=== PATIENT | male | born 1960 | race Caucasian/White ===

== ENCOUNTER 2019-02-26 03:41 | Emergency (ER) | payer BC ==
[2019-02-26] MEDS ORDERED: Labetalol 100 MG/20 ML MDV IVPUSH ONE ×3 (04:07→05:23)
[2019-02-26] MEDS ORDERED: Labetalol 100 MG/20 ML MDV ONE (04:09)
--- NOTE | 2019-02-26 04:11 | EDM.PDOC ---
ED HPI GENERAL MEDICAL PROBLEM - General Chief Complaint: Cardiovascular Problem Stated Complaint: HIGH BLOOD PRESSURE Time Seen by Provider: 02/26/19 03:54 Source of Information: Reports: Patient History Limitations: Reports: No Limitations - History of Present Illness INITIAL COMMENTS - FREE TEXT/NARRATIVE: This is a 58-year-old male. He comes to the ER this morning because of elevated blood pressure. 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 Tonight he went to [employer] had a steak and margaritas and he felt kind of bloated and he couldn' t burp so he says he decided to take his blood pressure because he was currently concerned this been high all week. When I asked him what his blood pressure was this week other than the DOT exam. Indicates he doesn't know as he hasn't been taking it just is been high. Tonight when he took his blood pressure home apparently was higher though he can't tell me what it was. He denies any chest pain, no headache, no shortness of breath. He does have a history of cardiac stents. He takes lisinopril 20 mg a day. He denies any recent illnesses. - Related Data Allergies Allergy/AdvReac Type Severity Reaction Status Date / Time No Known Allergies Allergy Verified 02/26/19 03:54 Home Meds: Home Meds Labetalol [Normodyne] 100 mg PO BID #14 tab 02/26/19 [Rx] Lisinopril 1 tab PO DAILY 02/26/19 [History] Past Medical History Cardiovascular History: Reports: Hypertension, Stents Musculoskeletal History: Reports: Fracture - Past Surgical History Musculoskeletal Surgical History: Reports: Other (See Below) Other Musculoskeletal Surgeries/Procedures:: knee surgery, arm surgery Social & Family History - Family History Family Medical History: Noncontributory - Tobacco Use Smoking Status *Q: Current Every Day Smoker Years of Tobacco use: 40 Packs/Tins Daily: 0.5 - Caffeine Use Caffeine Use: Reports: Coffee, Energy Drinks, Soda - Recreational Drug Use Recreational Drug Use: No ED ROS GENERAL - Review of Systems Review Of Systems: See Below Constitutional: Denies: Fever, Chills HEENT: Reports: No Symptoms Respiratory: Denies: Shortness of Breath, Cough Cardiovascular: Denies: Chest Pain Endocrine: Reports: No Symptoms GI/Abdominal: Denies: Abdominal Pain, Nausea, Vomiting : Reports: No Symptoms Musculoskeletal: Reports: No Symptoms Skin: Reports: No Symptoms Neurological: Denies: Headache Psychiatric: Reports: No Symptoms Hematologic/Lymphatic: Reports: No Symptoms ED EXAM, GENERAL - Physical Exam Exam: See Below Exam Limited By: No Limitations General Appearance: Alert, WD/WN, No Apparent Distress Eye Exam: Bilateral Eye: Normal Inspection Ears: Normal External Exam Nose: Normal Inspection Throat/Mouth: Normal Lips, Normal Voice, No Airway Compromise Head: Normocephalic Neck: Supple Respiratory/Chest: No Respiratory Distress, Lungs Clear, Normal Breath Sounds Cardiovascular: Regular Rate, Rhythm, No Murmur GI/Abdominal: Soft, Non-Tender Back Exam: Full Range of Motion Extremities: Normal Inspection, Normal Range of Motion Neurological: Alert, Oriented Psychiatric: Normal Affect, Normal Mood Skin Exam: Warm, Dry Course - Vital Signs Last Recorded V/S: Last Vital Signs Temp 97.8 F 02/26/19 03:50 Pulse 69 02/26/19 06:00 Resp 22 H 02/26/19 03:50 BP 189/99 H 02/26/19 06:00 Pulse Ox 97 02/26/19 03:50 - Orders/Labs/Meds Meds: Medications Discontinued Medications Generic Name Dose Route Start Last Admin Trade Name Magdaleno PRN Reason Stop Dose Admin Labetalol HCl 20 mg 02/26/19 04:07 02/26/19 04:13 Normodyne IVPUSH 02/26/19 04:08 20 mg ONETIME ONE Administration Protocol Labetalol HCl Confirm 02/26/19 04:09 02/26/19 04:14 Normodyne Administered 02/26/19 04:10 Not Given Dose 100 mg .ROUTE .STK-MED ONE Labetalol HCl 20 mg 02/26/19 04:45 02/26/19 04:46 Normodyne IVPUSH 02/26/19 04:46 20 mg ONETIME ONE Administration Protocol Labetalol HCl 20 mg 02/26/19 05:23 02/26/19 05:25 Normodyne IVPUSH 02/26/19 05:24 20 mg ONETIME ONE Administration Protocol Labetalol HCl 100 mg 02/26/19 05:44 02/26/19 06:00 Normodyne PO 02/26/19 05:45 100 mg ONETIME ONE Administration - Re-Assessments/Exams Free Text/Narrative Re-Assessment/Exam: 02/26/19 05:49 Patient has gotten 3 doses for a total of 60 mg of labetalol IV and is brought his blood pressure down to 169/100. Him and give him 100 mg by mouth labetalol and given prescription to take until he can follow-up with his family doctor and get his blood pressure medications adjusted. The patient understands this and he is good with this. Departure - Departure Time of Disposition: 05:50 Disposition: Home, Self-Care 01 Condition: Fair Clinical Impression: Elevated blood pressure reading Prescriptions: Labetalol [Normodyne] 100 mg PO BID #14 tab Instructions: Hypertension, [id number] Referrals: Leonardo Perez Jr, MD [Primary Care Provider] - Forms: ED Department Discharge Additional Instructions: Get the blood pressure medications filled today and start taking the medication twice a day, continue with your lisinopril 20 mg a day, avoid all alcohol until you follow up with your family doctor, follow-up family doctor this week so he can adjust your medications and continue the labetalol or change it to something more suitable to get your blood pressure under control, follow up to the ER if your blood pressure is elevated like tonight and you are having headache or chest pain or shortness of breath
[2019-02-26] MEDS ORDERED: Labetalol 100 MG Tab PO ONE (05:44)
== END 2019-02-26 06:06 | disposition home or self-care (01) ==
LOC: JD.ED 03:41
DX: I10 Essential (primary) hypertension (principal); F17.210 Nicotine dependence, cigarettes, uncomplicated; Z79.899 Other long term (current) drug therapy
CPT/HCPCS: 96374; 96376; 99283; A9270

== ENCOUNTER 2019-03-02 13:43 | Emergency (ER) | payer BC ==
[2019-03-02] MEDS ORDERED: Sodium Chloride 0.9% 10 ML Syringe FLUSH PRN (14:06)
--- NOTE | 2019-03-02 14:25 | EDM.PDOC ---
ED HPI GENERAL MEDICAL PROBLEM - General Chief Complaint: Chest Pain Stated Complaint: HIGH BP Time Seen by Provider: 03/02/19 13:51 Source of Information: Reports: Patient, Provider (Janice Hernández, [facility]), RN Notes Reviewed History Limitations: Reports: No Limitations - History of Present Illness INITIAL COMMENTS - FREE TEXT/NARRATIVE: Patient is a 58-year-old male who presents to the ED for evaluation of elevated troponin done at the clinic. Patient was recently evaluated here on 02/26/2019, for high blood pressure, and was started on labetalol 100 mg twice daily. He has been taking these medications as prescribed. He went to the [facility] today for a follow-up check of his blood pressure, the provider there did a EKG and man some labs, EKG showed no changes however the troponin came back quite elevated at 2.431, she sent him to our ER for further management. The patient CBC, and CMP appear to be within normal limits, and he does not have any renal insufficiency at this time. Patient denies any chest pain, or shortness of breath right now, but his O2 sats are 95% on room air, and appears to be slightly winded coming back to the ER. The patient notes he did have cardiac stents placed in 2013, 2 at the bottom of his heart at the [facility] facility in [place]. He takes 81 mg aspirin daily, but has not taken this today, takes lisinopril 2.5 mg twice daily, he did take this today as well as the labetalol 100 mg. And has not taken his atorvastatin today, as he takes this at night. - Related Data Allergies Allergy/AdvReac Type Severity Reaction Status Date / Time No Known Allergies Allergy Verified 03/02/19 13:47 Home Meds: Home Meds Labetalol [Normodyne] 100 mg PO BID #14 tab 02/26/19 [Rx] Aspirin 81 mg PO DAILY 03/02/19 [History] Lisinopril 2.5 mg PO DAILY 03/02/19 [History] atorvaSTATin Calcium [Atorvastatin Calcium] 80 mg PO DAILY 03/02/19 [History] Past Medical History HEENT History: Reports: None Cardiovascular History: Reports: High Cholesterol, Hypertension, Stents Respiratory History: Reports: None Gastrointestinal History: Reports: None Genitourinary History: Reports: None Musculoskeletal History: Reports: Fracture Neurological History: Reports: None Psychiatric History: Reports: None Endocrine/Metabolic History: Reports: None Hematologic History: Reports: None Immunologic History: Reports: None Oncologic (Cancer) History: Reports: None Dermatologic History: Reports: None - Infectious Disease History Infectious Disease History: Reports: None - Past Surgical History Cardiovascular Surgical History: Reports: Carotid Stents Other Cardiovascular Surgeries/Procedures: 2014 stent placed Musculoskeletal Surgical History: Reports: Other (See Below) Other Musculoskeletal Surgeries/Procedures:: knee surgery, arm surgery Social & Family History - Family History Family Medical History: Noncontributory - Tobacco Use Smoking Status *Q: Former Smoker Used Tobacco, but Quit: No Month/Year Tobacco Last Used: 2012 - Caffeine Use Caffeine Use: Reports: Soda - Recreational Drug Use Recreational Drug Use: No ED ROS GENERAL - Review of Systems Review Of Systems: See Below Constitutional: Denies: Fever, Chills, Diaphoresis Respiratory: Denies: Shortness of Breath Cardiovascular: Reports: Blood Pressure Problem (recent elevated blood pressure readings). Denies: Chest Pain, Edema, Lightheadedness GI/Abdominal: Denies: Abdominal Pain, Nausea, Vomiting Neurological: Denies: Headache ED EXAM, GENERAL - Physical Exam Exam: See Below Exam Limited By: No Limitations General Appearance: Alert, WD/WN, No Apparent Distress Eye Exam: Bilateral Eye: EOMI, Normal Inspection, PERRL Throat/Mouth: Normal Inspection, Normal Lips, Normal Teeth, Normal Gums, Normal Oropharynx, Normal Voice, No Airway Compromise Head: Atraumatic, Normocephalic Neck: Normal Inspection Respiratory/Chest: No Respiratory Distress, Lungs Clear, Normal Breath Sounds, No Accessory Muscle Use, Chest Non-Tender Cardiovascular: Normal Peripheral Pulses, Regular Rate, Rhythm, No Edema, No Murmur Peripheral Pulses: 3+: Radial (L), Radial (R) GI/Abdominal: Normal Bowel Sounds, Soft, Non-Tender, No Distention, No Mass Extremities: Normal Inspection, Normal Capillary Refill Neurological: Alert, Oriented, Normal Cognition, No Motor/Sensory Deficits Psychiatric: Normal Affect, Normal Mood Skin Exam: Warm, Dry, Intact, Normal Color (color slightly ashen in nature, not hypoxemic), No Rash Course - Vital Signs Last Recorded V/S: Last Vital Signs Temp 97.8 F 03/02/19 13:52 Pulse 81 03/02/19 13:52 Resp 18 03/02/19 13:52 BP 163/92 H 03/02/19 13:52 Pulse Ox 95 03/02/19 13:52 - Orders/Labs/Meds Orders: Active Orders 24 hr Category Date Time Status Peripheral IV Care [RC] . DIRECTED Care 03/02/19 14:07 Active Chest 1V Frontal [CR] Stat Exams 03/02/19 14:06 Taken Peripheral IV Insertion Adult [OM.PC] Stat Oth 03/02/19 14:06 Ordered Labs: Laboratory Tests 03/02/19 03/02/19 03/02/19 Range/Units 13:56 13:56 13:56 PT 10.8 (9.7-12.0) SECONDS INR 0.99 APTT 24 (22-31) SECONDS Troponin I 2.183 H* (0.00-0.056) ng/mL NT-Pro-B Natriuret Pep 261 H (0-125) pg/mL Please see scanned records for prior labs done at [facility]. Meds: Medications Discontinued Medications Generic Name Dose Route Start Last Admin Trade Name Freq PRN Reason Stop Dose Admin Sodium Chloride 10 ml 03/02/19 14:06 Saline Flush FLUSH ASDIRECTED PRN Keep Vein Open - Re-Assessments/Exams Free Text/Narrative Re-Assessment/Exam: 03/02/19 14:42 Patient presents to the ED for an elevated troponin. Plan is to repeat the troponin, draw a BNP, coagulation studies and a chest x-ray for further evaluation. It appears that the patient could be suffering from a non-STEMI at this time. I have consulted cardiology at [facility] in [place] on this case, but the one call director was wanting initial labs done in this facility before he talks with the hvac estimator director of clinical education. Patient's metabolic panel was within normal limits, he is not suffering from any sort of renal insufficiency at this time, as his creatinine was 0.91 and the GFR is 85. CBC is within normal limits as well, and urinalysis done at the [facility] was also within normal limits. There was a small amount of blood present in the urine. 03/02/19 14:53 Initial trop was 2.431 drawn at 11:59, the trop drawn at this ED visit was 2.183 at 14:42 I did call [facility] in [place], and was able to talk with Dr. Pierre, the list, and Dr. Posada, hvac estimator at [facility], they will accept the patient for transfer for observation to trend his troponin, as they believe this might be more of a hypertensive emergency/urgency elevation of the troponin. I will make the patient aware was going on, and have him transferred to [facility] for further management. Departure - Departure Time of Disposition: 15:09 Disposition: DC/Tfer to Acute Hospital 02 Reason for Transfer *Q: Other Condition: Fair Clinical Impression: Elevated troponin, Elevated blood pressure reading in office with diagnosis of hypertension Referrals: PCP,Not In Area [Primary Care Provider] - Forms: ED Department Discharge Sepsis Event Note - Evaluation Sepsis Screening Result: No Definite Risk - Focused Exam Vital Signs: Vital Signs Temp Pulse Resp BP Pulse Ox 03/02/19 13:52 97.8 F 81 18 163/92 H 95 Date Exam was Performed: 03/02/19 Time Exam was Performed: 22:26 - My Orders Last 24 Hours: My Active Orders 03/02/19 14:06 Chest 1V Frontal [CR] Stat Peripheral IV Insertion Adult [OM.PC] Stat 03/02/19 14:07 Peripheral IV Care [RC] . DIRECTED - Assessment/Plan Last 24 Hours: My Active Orders 03/02/19 14:06 Chest 1V Frontal [CR] Stat Peripheral IV Insertion Adult [OM.PC] Stat 03/02/19 14:07 Peripheral IV Care [RC] . DIRECTED
--- NOTE | 2019-03-03 10:20 | CR ---
Chest: Portable view of the chest was obtained. Comparison: No prior chest x-ray. Heart size is normal. Mild tortuosity of the thoracic aorta is seen. Lungs show no acute parenchymal change. Bony structures are grossly intact. Impression: 1. Nothing acute is seen on portable chest x-ray. Diagnostic code #1 This report was dictated in [place] Standard Time
== END 2019-03-02 15:45 ==
LOC: JD.ED 13:43
DX: I10 Essential (primary) hypertension (principal); R79.89 Other specified abnormal findings of blood chemistry; Z79.82 Long term (current) use of aspirin; Z79.899 Other long term (current) drug therapy; E78.00 Pure hypercholesterolemia, unspecified; Z87.891 Personal history of nicotine dependence
CPT/HCPCS: 36415; 71045; 71045-26; 83880; 84484; 85610; 85730; 99285-25